=== PATIENT | female | born 1950 | race Hispanic/Latino ===

== ENCOUNTER 2019-03-02 13:33 | Observation (INO) | payer OTHER ==
[~2019-03-02] VITALS: Ht 162.6 cm; Wt 90.7 kg
--- NOTE | 2019-03-02 11:00 | NUR ---
DRESSING CHANGE WITH DR. CHIN AT BEDSIDE. NATACHA DRAIN D/C WITH PT TOLERATING WELL. INCISION TO RIGHT STUMP WITH STEPHANIE. STEPHANIE INTACT WITH NO REDNESS, SWELLING OR DRAINAGE. CLEANSED WITH NS AND 4X4 GAUZE, PAT DRIED WITH 4X4 GAUZE, APPLIED 4X4 GAUZE, SECURED WITH KERLIX AND WRAPPED WITH ASHLEY BANDAGE PER DR. CHIN. EXPLAINED WOUND CARE UTILIZING TEACH BACK METHOD. AT BEDSIDE AND SAID IN [place] PT'S WOUND CARE IS EASIER THAN PREVIOUS RIGHT FOOT ANKLE WOUND CARE. PT/ VERBALIZED UNDERSTANDING REGARDING WOUND CARE. EXPLAINED S/S OF INFECTION TO REPORT TO DOCTOR. PT/ VERBALIZED UNDERSTANDING.
[2019-03-02] MEDS ORDERED: HYDRALAZINE HCL 20 MG/ML VIAL ONE (14:20)
[2019-03-02 14:33] LABS: BASOPHILS % (AUTO) 0.5 % (0.0-5.0); EOSINOPHILS % (AUTO) 2.5 % (0.0-8.0); HEMATOCRIT 44.7 % (36-48); LYMPHOCYTES % (AUTO) 27.8 % (21.0-51.0); MEAN CORPUSCULAR HEMOGLOBIN 32.1 pg (27.0-33.0); MEAN CORPUSCULAR HGB CONC 33.7 g/dL (32.0-36.0); MEAN CORPUSCULAR VOLUME 95.2 fL (79-99); MONOCYTES % (AUTO) 5.8 % (3.0-13.0); NEUTROPHILS % (AUTO) 63.4 % (40.0-77.0); NUCLEATED RED BLOOD CELLS 0.2 % (0.0-0.19); PLATELET COUNT (AUTO) 150 K/uL (130-400); RED BLOOD CELL COUNT(AUTO) 4.69 MIL/uL (4.00-5.50); RED CELL DISTRIBUTION WIDTH 13.4 % (11.0-15.5)
[2019-03-02 14:38] LABS: APPEARANCE,URINE Clear (CLEAR); BILIRUBIN,URINE Negative (NEGATIVE); COLOR,URINE Yellow (YELLOW); GLUCOSE, URINE (UA) Negative (NEGATIVE); KETONES,URINE Negative (NEGATIVE); LEUKOCYTE ESTERASE ,URINE Negative (NEGATIVE); NITRATE,URINE Negative (NEGATIVE); OCCULT BLOOD,URINE Negative (NEGATIVE); PH,URINE 6.5 (5.0-8.0); PROTEIN,URINE Negative (NEGATIVE); UROBILINOGEN,URINE 0.2 mg/dL (0.2-1.0)
[2019-03-02 14:43] LABS: CREATININE 0.8 mg/dL (0.5-1.5); POTASSIUM 4.5 mmol/L (3.5-5.1)
[2019-03-02 14:46] LABS: AMPHET/METH SCREEN,URINE NEGATIVE (NEGATIVE); BARBITURATE SCREEN, URINE NEGATIVE (NEGATIVE); BENZODIAZEPINES SCREEN,URINE NEGATIVE (NEGATIVE); CANNABINOID SCREEN,URINE NEGATIVE (NEGATIVE); COCAINE SCREEN,URINE NEGATIVE (NEGATIVE); OPIATE SCREEN,URINE NEGATIVE (NEGATIVE); PHENCYCLIDINE SCREEN,URINE NEGATIVE (NEGATIVE)
[2019-03-02] MEDS ORDERED: ENALAPRILAT DIHYDRATE 1.25MG/ML 1ML VIAL IV ONE (14:46)
[2019-03-02 14:49] LABS: PARTIAL THROMBOPLASTIN TIME 27.3 SEC (26.3-35.5); PROTHROMBIN TIME 10.5 SEC (9.6-11.6)
[2019-03-02 14:54] LABS: ALBUMIN 3.9 g/dL (3.5-5.0); BILIRUBIN,TOTAL 0.6 mg/dL (0.2-1.0); TOTAL PROTEIN, SERUM 7.3 g/dL (6.0-8.3)
[2019-03-02] MEDS ORDERED: CLOPIDOGREL BISULFATE 75 MG TAB ONE (15:40)
[2019-03-02] MEDS ORDERED: MORPHINE SULFATE 4 MG/1ML SYG IV PRN (17:00)
[2019-03-02] MEDS ORDERED: ZOLPIDEM TARTRATE 5 MG TAB PO PRN (17:00)
[2019-03-02] MEDS ORDERED: ACETAMINOPHEN 325 MG TAB PO PRN (17:00)
[2019-03-02] MEDS ORDERED: ONDANSETRON HCL 4 MG/2 ML VIAL IV PRN (17:00)
[2019-03-02] MEDS ORDERED: HYDRALAZINE HCL 20 MG/ML VIAL IV PRN (17:00)
[2019-03-02] MEDS ORDERED: LACTULOSE 20 GM/30 ML UDCUP PO PRN (17:00)
[2019-03-02] MEDS ORDERED: ACETAMINOPHEN-CODEINE 300/30MG TAB PO PRN (17:00)
[2019-03-02] MEDS ORDERED: DiphenhydrAMINE HCL 50 MG/ML VIAL IV PRN (17:00)
[2019-03-02] MEDS ORDERED: GUAIFENESIN-DM 200/20 MG 10 ML PO PRN (17:00)
[2019-03-02 18:14] VITALS: BP 157/77
[2019-03-02 19:56] VITALS: BP 151/60
[2019-03-02] MEDS ORDERED: ATORVASTATIN CALCIUM 20 MG TABLET PO SCH (21:00)
[2019-03-02] MEDS ORDERED: METO50TA18 PO (21:22)
[2019-03-02 23:44] VITALS: BP 136/74
[2019-03-03 03:28] VITALS: BP 128/67
[2019-03-03 04:16] LABS: BASOPHILS % (AUTO) 0.4 % (0.0-5.0); EOSINOPHILS % (AUTO) 3.3 % (0.0-8.0); HEMATOCRIT 41.3 % (36-48); MEAN CORPUSCULAR HEMOGLOBIN 33.7 pg (27.0-33.0); MEAN CORPUSCULAR HGB CONC 35.8 g/dL (32.0-36.0); MEAN CORPUSCULAR VOLUME 94.1 fL (79-99); MONOCYTES % (AUTO) 6.8 % (3.0-13.0); NEUTROPHILS % (AUTO) 61.5 % (40.0-77.0); PLATELET COUNT (AUTO) 135 K/uL (130-400); RED BLOOD CELL COUNT(AUTO) 4.39 MIL/uL (4.00-5.50); RED CELL DISTRIBUTION WIDTH 13.1 % (11.0-15.5); WHITE BLOOD COUNT (AUTO) 6.2 K/uL (4.8-10.8)
[2019-03-03 04:22] LABS: HEMOGLOBIN A1C 5.4 % (4.0-6.0)
[2019-03-03 04:35] LABS: CREATININE 0.9 mg/dL (0.5-1.5); POTASSIUM 4.2 mmol/L (3.5-5.1)
[2019-03-03 08:00] VITALS: BP 138/87
[2019-03-03] MEDS ORDERED: ENOXAPARIN SODIUM 40 MG/0.4 ML SYRINGE SQ SCH (09:00)
[2019-03-03] MEDS ORDERED: ASPIRIN 81MG TAB.CHEW PO SCH (09:00)
--- NOTE | 2019-03-03 10:45 | NUR ---
CALLED DR. XAVIER ALVARADO'S OFFICE REGARDING DR. JIMENEZ'S ORDERS. DIANNE DELAROSA SAID IT WAS OK TO START ASPIRIN AND STEROIDS LONG PT ON PROTONIX AND KEEPS FOLLOW UP APPOINTMENT ALREADY SCHEDULED WITH DR. XAVIER ALVARADO. NOTIFIED PT AND FAMILY. INSTRUCTED PT/FAMILY ON S/S TO REPORT TO NURSE/DR IF NEEDED UTILIZING TEACH BACK METHOD. PT/ VERBALIZED UNDERSTANDING.
--- NOTE | 2019-03-03 10:56 | NUR ---
Provided handouts printed Hope Palsy strengthening exercises to follow at home.Patient was able to perform each facial exercises without any difficulty. Addendum: 03/03/19 at 1059 by DORCAS LOGAN, PT PT Amended: Links added.
--- NOTE | 2019-03-03 11:01 | NUR ---
NOTIFIED [facility]RE[facility] REGARDING DR. JIMENEZ'S ORDERS REGARDING STARTING ASPIRIN, STEROIDS AND PROTONIX AND ORDERS NEEDED. INFORMED OK WITH DR. XAVIER ALVARADO.
[2019-03-03 11:52] VITALS: BP 138/65
--- NOTE | 2019-03-03 13:06 | NUR ---
DYSPHAGIA EVAL COMPLETED. -S/S OF ASPIRATION. RECOMMEND REGULAR TEXTURE, THIN LIQUIDS; PILLS WHOLE WITH LIQUIDS. PATIENT INFORMATION: Pt IS A 68 YEAR OLD FEMALE WHO WAS REFERRED FOR A BEDSIDE DYSPHAGIA EVALUATION SECONDARY TO ADMITTING DIAGNOSIS FOR POSSIBLE ACUTE ISCHEMIC CVA. NEUROLOGIST CONFIRMS WELLS'S PALSY. Pt AAOX3 AND COOPERATIVE DURING THE EVALUATION. Pt HAS A PAST MEDICAL HISTORY SIGNIFICANT FOR HYPERTENSION, DYSLIPIDEMIA, OBESITY, AND SUSPECTED CHRISTIE. Pt REPORTS WELLS'S PALSY IN PAST WITH LEFT FACIAL DROOP. Pt CURRENTLY WITH WELLS'S PALSY WITH RIGHT FACIAL DROOP. EVALUATION: SWALLOW FUNCTION AND EFFICIENCY WITHIN FUNCTIONAL LIMITS. LARYNGEAL ELEVATION/EXCURSION STRONG WITH TIMELY PHARYNGEAL RESPONSE. Pt WITH NO OVERT S/S OF ASPIRATION WITH TRIALS. Pt PRESENTS WITH RIGHT SIDED FACIAL WEAKNESS. LINGUAL MUSCULATURE WITHIN FUNCTIONAL LIMITS. Pt ABLE TO COMPENSATE FOR DECREASED LABIAL SEAL. NO ANTERIOR SPILLAGE NOTED AT THIS TIME. MILK BOTTLING MACHINE OPERATOR PROVIDED Pt WITH FACIAL EXERCISES TO INCREASED ORAL MOTOR ROM AND COORDINATION. RECOMMENDATIONS: 1. REGULAR SOLIDS, THIN LIQUIDS; PILLS WHOLE WITH LIQUIDS. 2. COMPENSATORY STRATEGIES: *SEATED AT 90 DEGREES *REMAIN UPRIGHT 30 MINUTES AFTER THE MEAL G-CODES SWALLOWING: [id number] Addendum: 03/03/19 at 1312 by PRAKASH MCKEON [facility] Amended: Links added.
[2019-03-03] MEDS ORDERED: METH4TAB3 PO (13:45)
[2019-03-03] MEDS ORDERED: FAMC250T4 PO (13:45)
[2019-03-03] MEDS ORDERED: PANT40TA25 PO (13:45)
[2019-03-03] MEDS ORDERED: ASPI-1005 PO (13:45)
[2019-03-03 16:00] VITALS: BP 134/70
--- NOTE | 2019-03-03 16:34 | NUR ---
CM INITIAL CM met with pt and spoue at b/side; evident of facial drooping, cleared for dc by neurosurgoen; indp, no dme, no hh no provider, dcp plan home Addendum: 03/03/19 at 1636 by JOSTIN NULL RN CM Amended: Links added.
== END 2019-03-03 17:50 | disposition home or self-care (01) ==
LOC: EDH 13:33 → EDHIP 17:00 → 3AH 18:03
PROVIDERS: ADMIT Internal Medicine Pulmonary Disease; ATTEND Internal Medicine Pulmonary Disease
DX: G51.0 Bell's palsy (principal); E66.9 Obesity, unspecified; E78.5 Hyperlipidemia, unspecified; I10 Essential (primary) hypertension; R20.0 Anesthesia of skin; I63.9 Cerebral infarction, unspecified; K29.70 Gastritis, unspecified, without bleeding; Z79.82 Long term (current) use of aspirin; Z79.899 Other long term (current) drug therapy
CPT/HCPCS: 36415 ×2; 70450; 70544; 70551; 71045; 80048; 80053; 80061; 80305; 81003; 82550; 82948; 83036; 83874; 84484; 85025 ×2; 85610; 85730; 92610; 93005; 93880; 96372; 97116; 97161; 97530; 99284; G0378 ×25; G8978; G8979; G8980; G8981; G8982; G8983; J0360; J1650; J3490

== ENCOUNTER 2025-02-26 12:16 | Observation (INO) | payer OTHER ==
[~2025-02-26] VITALS: Ht 160 cm; Wt 77.8 kg
[~2025-02-26 12:16] MED LIST: ASPI-1005 PO; FAMC250T PO; METH4TAB3 PO; METO50TA18 PO; PANT40TA55 PO
[2025-02-26 13:19] LABS: BASOPHILS # (AUTO) 0.01 K/uL (0.00-0.20); BASOPHILS % (AUTO) 0.2 % (0.0-5.0); EOSINOPHILS # (AUTO) 0.11 K/uL (0.00-0.70); EOSINOPHILS % (AUTO) 2.3 % (0.0-8.0); IMMATURE GRANULOCYTE ABSOLUTE 0.02 K/uL (0-1); LYMPHOCYTES # (AUTO) 1.3 K/uL (1.0-4.8); LYMPHOCYTES % (AUTO) 27.2 % (21.0-51.0); MEAN CORPUSCULAR HEMOGLOBIN 32.9 pg (27.0-33.0); MEAN CORPUSCULAR VOLUME 96.6 fL (79-99); MONOCYTES # (AUTO) 0.3 K/uL (0.1-1.0); MONOCYTES % (AUTO) 7.2 % (3.0-13.0); NEUTROPHILS # (AUTO) 2.9 K/uL (1.8-7.7); NEUTROPHILS % (AUTO) 62.7 % (40.0-77.0); PLATELET COUNT (AUTO) 144 K/uL (130-400); RED BLOOD CELL COUNT(AUTO) 4.14 MIL/uL (4.00-5.50); RED CELL DISTRIBUTION WIDTH 12.8 % (11.0-15.5); WHITE BLOOD COUNT (AUTO) 4.7 K/uL (4.8-10.8)
[2025-02-26 13:27] LABS: CREATININE 0.8 mg/dL (0.5-1.0); POTASSIUM 3.9 mmol/L (3.5-5.1)
[2025-02-26 13:31] LABS: ALBUMIN 3.8 g/dL (3.5-5.0); BILIRUBIN,DIRECT 0.2 mg/dL (0.0-0.3); BILIRUBIN,TOTAL 0.9 mg/dL (0.2-1.0)
--- NOTE | 2025-02-26 13:47 | HMCIMG ---
CT HEAD/BRAIN W/O CONTRAST INDICATION: vision changes TECHNIQUE: CT HEAD/BRAIN W/O CONTRAST. CT was performed with one or more of the following dose reduction techniques: Automated exposure control, adjustment of the mA and/or kV according to the patient's size, or use of the iterative reconstruction technique. Comparison: None FINDINGS: Cerebral atrophy seen. Nonspecific periventricular and subcortical white matters changes are noted likely representing small vessel ischemic changes. No midline shift or herniation. No extra axial collection. No acute intracranial bleed. The visualized paranasal sinuses and mastoid air cells are normally aerated. IMPRESSION: Diffuse atrophy. No acute intracranial bleed is seen. Nonspecific white matter changes
--- NOTE | 2025-02-26 14:29 | ERN ---
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 Patient reports diplopia, headache, dizziness, and hypertension but denies chest pain, shortness of breath or any other associated symptoms at this time. Patient mentioned she has a history of eye problems where she was receiving injections by her showroom consultant to her left eye previous years. Medications: Losartan and metoprolol Allergies: Coded Allergies: aspirin (Verified Adverse Reaction, Unknown, GI UPSET, 03/02/19) Home Meds Active Scripts Aspirin (ASPIRIN 81MG CHEW TAB) 81 Mg Tab.chew, 81 MG PO DAILY for 30 Days, #30 TAB.CHEW Prov:FERDINAND TIRADO NP 03/03/19 Pantoprazole Sodium (Protonix) 40 Mg Ectab, 40 MG PO DAILY for 30 Days, #30 TAB.EC Prov:FERDINAND TIRADO NP 03/03/19 Famciclovir (Famciclovir) 250 Mg Tablet, 250 MG PO TID for 5 Days, #15 TAB Prov:FERDINAND TIRADO NP 03/03/19 Methylprednisolone (Medrol) 4 Mg Tab.ds.pk, 4 MG PO AD for 6 Days, #1 PACK Prov:FERDINAND TIRADO NP 03/03/19 Reported Medications Metoprolol Tartrate (Metoprolol Tartrate) 50 Mg Tablet, 50 MG PO BID, TAB 03/02/19 Past Medical History Past Medical History: Hypertension Surgical History: None Review of System Dictation Constitutional: Negative for fever,chills, and weight loss Eyes: Positive for vision change, diplopia Negative for injury, pain,redness, and discharge ENT: Negative for injury,pain or swelling Cardiovascular: Negative for chest pain, palpitations, and edema Respiratory: Negative for shortness of breath, cough, and wheezing, Abdomen/GI: Negative for abdominal pain, nausea, vomiting, diarrhea, and constipation Back: Negative for injury and pain : Negative for injury, bleeding and discharge MS/Extremity: Negative for injury and deformity Skin: Negative for rash, and discoloration Neuro: Positive for headache and dizziness negative for weakness, numbness, tingling, and seizure Psych: Negative for suicide ideation, homicidal ideation, and hallucinations Initial Vital Sign VS Vital Signs Date Time Temp Pulse Resp B/P (MAP) Pulse Ox O2 Delivery O2 Flow Rate FiO2 02/26/25 12:19 96.6 58 18 167/72 98 Room Air 0 02/26/25 12:51 21 Physical Exam Dictation General: awake, alert, NAD Head/Face: Normocephalic, atraumatic Eyes: PERRL, EOMI, vision at baseline ENT: oral cavity clear, TMs clear, no signs of infection Neck: Trachea midline, supple, no nuchal rigidity Cardiovascular: RRR, normal S1/S2, No MRGs, no JVD Respiratory: CTAB, no respiratory distress, No rales or wheezes Abdomen: Soft, non-tender, non-distended, normal bowel sounds, no guarding or rebound. Skin: Warm, dry, normal turgor, no rash MS/Extremity: Pulses equal, no cyanosis, neurovascular intact, FROM Neuro: COAx4, GCS 15, strength 5/5, CN 2-12 intact, normal cerebellar exam, normal gait, Psych: Normal behavior, mood, and affect normal Results (Laboratory/Radiology) Laboratory/Radiology Laboratory Tests Test 02/26/25 13:10 02/26/25 15:54 White Blood Count 4.7 K/uL (4.8-10.8) L Red Blood Count 4.14 MIL/uL (4.00-5.50) Hemoglobin 13.6 g/dL (12.0-16.0) Hematocrit 40.0 % (36-48) Mean Corpuscular Volume 96.6 fL (79-99) Mean Corpuscular Hemoglobin 32.9 pg (27.0-33.0) Mean Corpuscular Hemoglobin Concent 34.0 g/dL (32.0-36.0) Red Cell Distribution Width 12.8 % (11.0-15.5) Platelet Count 144 K/uL (130-400) Mean Platelet Volume 11.4 fL (7.5-10.5) H Immature Granulocyte % (Auto) 0.4 % (0-1) Neutrophils (%) (Auto) 62.7 % (40.0-77.0) Lymphocytes (%) (Auto) 27.2 % (21.0-51.0) Monocytes (%) (Auto) 7.2 % (3.0-13.0) Eosinophils (%) (Auto) 2.3 % (0.0-8.0) Basophils (%) (Auto) 0.2 % (0.0-5.0) Neutrophils # (Auto) 2.9 K/uL (1.8-7.7) Lymphocytes # (Auto) 1.3 K/uL (1.0-4.8) Monocytes # (Auto) 0.3 K/uL (0.1-1.0) Eosinophils # (Auto) 0.11 K/uL (0.00-0.70) Basophils # (Auto) 0.01 K/uL (0.00-0.20) Absolute Immature Granulocyte (auto 0.02 K/uL (0-1) Nucleated Red Blood Cells 0.0 % (0.0-0.19) Sodium Level 142 mmol/L (136-145) Potassium Level 3.9 mmol/L (3.5-5.1) Chloride Level 105 mmol/L (101-111) Carbon Dioxide Level 31 mmol/L (21-32) Blood Urea Nitrogen 13 mg/dL (7-18) Creatinine 0.8 mg/dL (0.5-1.0) Glomerular Filtration Rate Calc 78 mL/min (>90) Random Glucose 98 mg/dL (70-105) Total Calcium 9.1 mg/dL (8.5-10.1) Total Bilirubin 0.9 mg/dL (0.2-1.0) Direct Bilirubin 0.2 mg/dL (0.0-0.3) Aspartate Amino Transf (AST/SGOT) 18 U/L (10-37) Alanine Aminotransferase (ALT/SGPT) 21 U/L (12-78) Alkaline Phosphatase 86 U/L (50-136) Troponin I High Sensitivity 7 ng/L (4-50) Total Protein 7.0 g/dL (6.0-8.3) Albumin 3.8 g/dL (3.5-5.0) Urine Color LIGHT-YELLOW (YELLOW) Urine Appearance CLEAR (CLEAR) Urine pH 8.0 (5.0-8.0) Urine Specific [place] 1.014 (1.001-1.031) Urine Protein NEGATIVE mg/dL (NEGATIVE) Urine Glucose (UA) NEGATIVE mg/dL (NEGATIVE) Urine Ketones NEGATIVE mg/dL (NEGATIVE) Urine Occult Blood NEGATIVE (NEGATIVE) Urine Nitrate NEGATIVE (NEGATIVE) Urine Bilirubin NEGATIVE mg/dL (NEGATIVE) Urine Urobilinogen 0.2 mg/dL (0.2-1.0) Urine Leukocyte Esterase 25 Shanda/uL (NEGATIVE) H Urine RBC 0-1 /HPF (0-1) Urine WBC 2-5 /HPF (0-1) H Urine Non-Squamous Epithelial Cells <1 /HPF (0-2) Urine Bacteria None /HPF (None Seen) Labs Reviewed?: Yes EKG Comment: EKG 02/26/2025 time 1:43 p.m. ventricular rate 60, SC 164, QRS D 86, QT 363. Sinus rhythm. No STEMI CT Scan Comment: REASON: vision changes ORDERING PHYSICIAN: ALAYNA NORMAN MD PROCEDURE: HEAD WO - CT HEAD/BRAIN W/O CONTRAST CT HEAD/BRAIN W/O CONTRAST INDICATION: vision changes TECHNIQUE: CT HEAD/BRAIN W/O CONTRAST. CT was performed with one or more of the following dose reduction techniques: Automated exposure control, adjustment of the mA and/or kV according to the patient's size, or use of the iterative reconstruction technique. Comparison: None FINDINGS: Cerebral atrophy seen. Nonspecific periventricular and subcortical white matters changes are noted likely representing small vessel ischemic changes. No midline shift or herniation. No extra axial collection. No acute intracranial bleed. The visualized paranasal sinuses and mastoid air cells are normally aerated. IMPRESSION: Diffuse atrophy. No acute intracranial bleed is seen. Nonspecific white matter changes DICTATED BY: JAYME BONE MD DATE: 02/26/25 1344 ED Course ED Course Orders Procedure Category Date Status Time 12 Lead Ekg Tracing- EKG 02/26/25 Complete Technical 13:12 Basic Metabolic Panel LAB 02/26/25 Complete 13:12 Cbc With Differential LAB 02/26/25 Complete 13:12 Troponin I High LAB 02/26/25 Complete Sensitivity 13:12 Hepatic Function Panel LAB 02/26/25 Complete 13:12 Ct Head/Brain W/O CT 02/26/25 Resulted Contrast 13:12 Urinalysis Profile LAB 02/26/25 Complete 13:12 Vital Signs Date Time Temp Pulse Resp B/P (MAP) Pulse Ox O2 Delivery O2 Flow Rate FiO2 02/26/25 12:51 98.2 62 14 178/73 98 Room Air* 0 21 02/26/25 12:19 96.6 58 18 167/72 98 Room Air 0 Medical Decision Making MDM MDM: Differential diagnosis: Headache, vision change, hypertensive urgency 1623- [facility] consult, accepts patient for admission Rationale: Tests considered and ordered secondary to shared decision making include: labs, ECG and radiology Risk of complication and/or morbidity or mortality of patient management: None Medications-Per medication reconciliation Need for hospitalization: Patient does meet criteria for hospitalization. Need for emergency major/minor surgery: No There are no social concerns with this patient. I independently interpreted the test that were performed, results were reviewed by me and considered findings on radiology if ordered. Medical management and examination interpretation discussions were had by me with other qualified healthcare professionals as indicated for the patient's care. DX & DISP Disposition: Inpatient Decision to Admit Date: Feb 26, 2025 Decision to Admit Time: 16:23 Departure Impression: Primary Impression: Vision changes Additional Impression: Hypertensive urgency Condition: Stable Referrals: APRIL GUILLEN MD (PCP) ALAYNA NORMAN MD Feb 26, 2025 14:29
--- NOTE | 2025-02-26 14:51 | EKG ---
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
[2025-02-26 16:03] LABS: APPEARANCE,URINE CLEAR (CLEAR); BILIRUBIN,URINE NEGATIVE (NEGATIVE); COLOR,URINE LIGHT-YELLOW (YELLOW); GLUCOSE, URINE (UA) NEGATIVE (NEGATIVE); KETONES,URINE NEGATIVE (NEGATIVE); LEUKOCYTE ESTERASE ,URINE 25 Leu/uL (NEGATIVE); NITRATE,URINE NEGATIVE (NEGATIVE); OCCULT BLOOD,URINE NEGATIVE (NEGATIVE); PROTEIN,URINE NEGATIVE (NEGATIVE); UROBILINOGEN,URINE 0.2 mg/dL (0.2-1.0)
[2025-02-26 16:04] LABS: ADD UA MICROSCOPIC YES
[2025-02-26 16:06] LABS: MUCUS,URINE RARE LPF (None Seen); NON-SQUAMOUS EPITHELIAL CELL <1 /HPF (0-2); RBC,URINE 0-1 /HPF (0-1)
[2025-02-26] MEDS ORDERED: ondanSETRON 4MG INJ IVP PRN (16:30)
[2025-02-26] MEDS ORDERED: PoTASSium chl 10% ELIXIR 20MEQ 20 MEQ/15 ML UDCUP PO PRN (16:30)
[2025-02-26] MEDS ORDERED: PoTASSium chloRIDE 20MEQ/100ML 100 ML IV PRN (16:30)
[2025-02-26] MEDS ORDERED: HYDROcodone/APAP 5/325 1 TAB TABLET PO PRN (16:30)
[2025-02-26] MEDS ORDERED: MAGNESIUM 2GM PREMIX 50ML 50 ML IV PRN (16:30)
[2025-02-26] MEDS ORDERED: PoTASSium chloRIDE 20MEQ ER 20 MEQ ERTAB PO PRN (16:30)
[2025-02-26] MEDS ORDERED: LACTULOSE 20 GM/30 ML UDCUP PO PRN (16:30)
[2025-02-26] MEDS: hydrALAZine 20MG/ML VIAL IV PRN (18:02)
[2025-02-26] MEDS ORDERED: IOHEXOL 350 MG/ML 100ML INFUS..BTL IV ONE (18:14)
[2025-02-26 18:18] LABS: AMPHET/METH SCREEN,URINE NEGATIVE (NEGATIVE); BARBITURATE SCREEN, URINE NEGATIVE (NEGATIVE); BENZODIAZEPINES SCREEN,URINE NEGATIVE (NEGATIVE); CANNABINOID SCREEN,URINE NEGATIVE (NEGATIVE); COCAINE SCREEN,URINE NEGATIVE (NEGATIVE); OPIATE SCREEN,URINE NEGATIVE (NEGATIVE); PHENCYCLIDINE SCREEN,URINE NEGATIVE (NEGATIVE)
--- NOTE | 2025-02-26 18:21 | HP ---
[facility] HISTORY & PHYSICAL Date Patient Seen: Feb 26, 2025 Time of Visit: 18:14 Supervising Physician: DR. DAVIS BARAJAS Primary Care Physician: [ ] Outpatient Specialists: [ ] Inpatient Consults: [ ] PROBLEM LIST: 1. HYPERTENSIVE URGENCY 2. VISION CHANGE LEFT EYE, RULE OUT ISCHEMIC STROKE 3. ACUTE COMPLICATED CYSTITIS 4. UTI CHIEF COMPLAINT: Vision change, left eye HPI: Patient is a 74-year-old female with past medical history significant for hypertension, hyperlipidemia, presented to the emergency department today complaining of vision change to the left eye that started today. Patient reports that she has been having blurry vision to the left eye and when checking her blood pressure at home, she was found to have a systolic BP above 180s. In addition, patient reports dizziness at times. Patient decided to come to the emergency department for further evaluation and treatment. Patient denies fever, chills, nausea, vomiting, diarrhea, chest pain, cough, dysuria, or any other symptoms. The workup in the emergency department shows WBC of 4.7, blood pressure 178/72, UA shows UTI. Patient will be admitted to medical floor for further evaluation and treatment. PAST MEDICAL HX: see above PAST SURGICAL HX: noncontributory SOCIAL HISTORY: No tobacco, ETOH, or illicit drug use Coded Allergies: aspirin (Verified Adverse Reaction, Unknown, GI UPSET, 03/02/19) REVIEW OF SYSTEMS: 12 point ROS reviewed with patient. Pertinent positives mentioned above. Otherwise negative. PHYSICAL EXAM: GENERAL: alert, weak, awake oriented x 3 HEENT: EOMI, Sclera non icteric, moist mucosa NECK: Supple, no JVD, trachea midline LUNGS: Clear breath sounds bilaterally. No wheezes HEART: Regular rate and rhythm. Normal S1 and S2, without murmurs ABD: Abdomen soft, nontender. Bowel sounds present EXT: No clubbing cyanosis or edema NEURO: Alert and oriented to person, follows commands, blurry vision to the left eye Vital Signs (last 8hr) Date Time Temp Pulse Resp B/P (MAP) Pulse Ox O2 Delivery O2 Flow Rate FiO2 02/26/25 17:58 97.9 72 14 189/69 99 Room Air* 0 21 02/26/25 12:51 98.2 62 14 178/73 98 Room Air* 0 21 02/26/25 12:19 96.6 58 18 167/72 98 Room Air 0 LABS: Hematology Labs: Test 02/26/25 13:10 Range/Units White Blood Count 4.7 L 4.8-10.8 K/uL Red Blood Count 4.14 4.00-5.50 MIL/uL Hemoglobin 13.6 12.0-16.0 g/dL Hematocrit 40.0 36-48 % Mean Corpuscular Volume 96.6 79-99 fL Mean Corpuscular Hemoglobin 32.9 27.0-33.0 pg Mean Corpuscular Hemoglobin Concent 34.0 32.0-36.0 g/dL Red Cell Distribution Width 12.8 11.0-15.5 % Platelet Count 144 130-400 K/uL Mean Platelet Volume 11.4 H 7.5-10.5 fL Immature Granulocyte % (Auto) 0.4 0-1 % Neutrophils (%) (Auto) 62.7 40.0-77.0 % Lymphocytes (%) (Auto) 27.2 21.0-51.0 % Monocytes (%) (Auto) 7.2 3.0-13.0 % Eosinophils (%) (Auto) 2.3 0.0-8.0 % Basophils (%) (Auto) 0.2 0.0-5.0 % Neutrophils # (Auto) 2.9 1.8-7.7 K/uL Lymphocytes # (Auto) 1.3 1.0-4.8 K/uL Monocytes # (Auto) 0.3 0.1-1.0 K/uL Eosinophils # (Auto) 0.11 0.00-0.70 K/uL Basophils # (Auto) 0.01 0.00-0.20 K/uL Absolute Immature Granulocyte (auto 0.02 0-1 K/uL Nucleated Red Blood Cells 0.0 0.0-0.19 % Chemistry Labs: Test 02/26/25 13:10 Range/Units Sodium Level 142 136-145 mmol/L Potassium Level 3.9 3.5-5.1 mmol/L Chloride Level 105 101-111 mmol/L Carbon Dioxide Level 31 21-32 mmol/L Blood Urea Nitrogen 13 7-18 mg/dL Creatinine 0.8 0.5-1.0 mg/dL Glomerular Filtration Rate Calc 78 >90 mL/min Random Glucose 98 70-105 mg/dL Total Calcium 9.1 8.5-10.1 mg/dL Total Bilirubin 0.9 0.2-1.0 mg/dL Direct Bilirubin 0.2 0.0-0.3 mg/dL Aspartate Amino Transf (AST/SGOT) 18 10-37 U/L Alanine Aminotransferase (ALT/SGPT) 21 12-78 U/L Alkaline Phosphatase 86 50-136 U/L Troponin I High Sensitivity 7 4-50 ng/L Total Protein 7.0 6.0-8.3 g/dL Albumin 3.8 3.5-5.0 g/dL DIAGNOSTICS / RADIOLOGY RESULTS: [ ] PLAN NEURO: Minimize central acting medications as possible. Maintain fall precautions, adequate lighting during the day Neuro check every 4 hours Obtain UDS, ammonia level MRI brain with and without contrast, CTA neck Aspirin 81 mg p.o. daily, atorvastatin 40 mg p.o. at bedtime PULMONARY: Supplemental 02 as needed. Maintain aspiration precautions at all times CARDIOVASCULAR: Follow hemodynamics. Vital signs per facility protocol GI & NUTRITION: Continue with nutritional support. Continue stool softeners and laxatives as needed. KIDNEYS & ELECTROLYTES: Strict monitoring of intake, output and overall fluid balance. Avoid nephrotoxic medications to the extent possible. Medications to be dosed according to renal function. Monitor electrolytes and replace as needed ENDOCRINE: Maintain blood glucose between 100-180 at all times. Hypoglycemia protocol in place INFECTIOUS DISEASE: Trend temperature, WBC and procalcitonin level Follow cultures, deescalate antibiotics as soon as possible. Panculture if new onset fever Ceftriaxone 2 g IV daily Urine culture ONCOLOGY/HEMATOLOGY/COAGULATION: Monitor for s/s of bleeding Monitor hemoglobin, coagulation studies as needed SKIN: Pressure ulcer prevention per facility protocol Specialty mattress ORTHO/REHAB: Continue PT/OT Prophylaxis: Continue GI and DVT prophylaxis Code Status: Full Resuscitation Disposition: TBD Other: Total patient care time exceeds 35 minutes excluding all procedures. ZARINA SONG Feb 26, 2025 18:21
--- NOTE | 2025-02-26 18:48 | NUR ---
PATIENT GOT BACK FROM CT ANGIO NECK WITH CONTRAST AND STARTED FEELING DIZZY AND WANTING TO FAINT, I HELPED PATIENT TO COMMODE AND SHE VOIDED 100CC, Addendum: 02/26/25 at 1930 by AMMY PATIENT WAS HYPERTENSIVE, 208/[address] ANGIO NECK W/ CONTRAST, I ADMINISTERED HYDRALAZINE PRN, AND RECEIVED ORDERS FROM ZARINA SONG NP FOR BENADRYL 25MG IV ONCE, 1839 PATIENT STARTED COMPLAINING OF CONGESTION AND I WAS ABLE TO ADMINISTER BENADRYL 25MG IV ONCE, 1847 PATIENT NASAL CONGESTION STARTED DECLINING, CURRENT BP IS 156/75, 98% O2 SAT, 80 HR, 12 RR, 98.0 TEMP PATIENT RESTNG IN BED, CALL LIGHT IN REACH
[2025-02-26] MEDS: CEFTRIAXONE 2GM VIAL IVPB SCH (19:02)
--- NOTE | 2025-02-26 19:11 | HMCIMG ---
CT ANGIO NECK HISTORY: Vision changes COMPARISON: None TECHNIQUE: CT angiography of the neck was performed. The study was performed using angiographic technique with maximum intensity projection reconstruction images. FINDINGS: There are degenerative changes of the cervical spine. Parapharyngeal fat planes are preserved bilaterally. The airway is patent. Normal enhancement of the thyroid gland is noted. Visualized portion of the lung apices are unremarkable. The common, internal and external carotid arteries are visualized. Approximately 40% stenosis is seen of the internal carotid arteries bilaterally. Both vertebral arteries are seen with antegrade flow. IMPRESSION: CTA Neck 1. Atherosclerotic disease. Approximately 40% stenosis is seen of the internal carotid arteries bilaterally. CT was performed with one or more following dose reduction techniques: automated exposure control, adjustment of the mA and kv according to patient's size, or use of a iterative reconstruction technique.
[2025-02-26] MEDS: DiphenhydrAMINE HCL 50 MG/ML VIAL IV ONE (19:21)
--- NOTE | 2025-02-26 19:23 | NUR ---
PT CARE ASSUMED AT THIS TIME
[2025-02-26] MEDS ORDERED: hydrALAZine 20MG/ML VIAL IV PRN (19:30)
[2025-02-26] MEDS: atorVAStatin 40 MG TABLET PO SCH (21:22)
[2025-02-26] MEDS: hydrALAZine 25MG TABLET PO SCH (21:23)
--- NOTE | 2025-02-26 22:56 | NUR ---
[facility] NUMBER [phone]
[2025-02-27] MEDS: acetaMINOPHEN 325 MG TAB PO PRN (01:03)
--- NOTE | 2025-02-27 03:55 | NUR ---
ATTEMPT TO GIVE REPORT AT THIS TIME
--- NOTE | 2025-02-27 04:24 | NUR ---
REPORT GIVEN TO IDALIA ANDERSON AT THIS TIME
[2025-02-27 04:28] VITALS: O2SAT 98
[2025-02-27 04:46] VITALS: BP 144/85; PULSE 71; RESP 20; TEMP 98
[2025-02-27 06:08] LABS: BASOPHILS # (AUTO) 0.01 K/uL (0.00-0.20); BASOPHILS % (AUTO) 0.2 % (0.0-5.0); EOSINOPHILS # (AUTO) 0.12 K/uL (0.00-0.70); HEMATOCRIT 39.5 % (36-48); IMMATURE GRANULOCYTE ABSOLUTE 0.02 K/uL (0-1); LYMPHOCYTES # (AUTO) 1.6 K/uL (1.0-4.8); LYMPHOCYTES % (AUTO) 26.7 % (21.0-51.0); MEAN CORPUSCULAR HEMOGLOBIN 32.9 pg (27.0-33.0); MEAN CORPUSCULAR HGB CONC 34.2 g/dL (32.0-36.0); MEAN CORPUSCULAR VOLUME 96.3 fL (79-99); MONOCYTES # (AUTO) 0.5 K/uL (0.1-1.0); MONOCYTES % (AUTO) 8.1 % (3.0-13.0); NEUTROPHILS # (AUTO) 3.7 K/uL (1.8-7.7); NEUTROPHILS % (AUTO) 62.7 % (40.0-77.0); PLATELET COUNT (AUTO) 136 K/uL (130-400); WHITE BLOOD COUNT (AUTO) 5.9 K/uL (4.8-10.8)
[2025-02-27 06:17] LABS: CREATININE 0.8 mg/dL (0.5-1.0); POTASSIUM 3.5 mmol/L (3.5-5.1)
[2025-02-27 08:18] VITALS: BP 149/69; PULSE 69; RESP 16; TEMP 97.7
[2025-02-27] MEDS: ASPIRIN 81 MG EC TAB PO SCH (10:28)
[2025-02-27] MEDS: ENOXAPARIN SODIUM 40 MG/0.4 ML SYRINGE SQ SCH (10:28)
[2025-02-27] MEDS: FAMOTIDINE 20MG TAB PO SCH (10:29)
[2025-02-27 12:01] VITALS: BP 145/64; PULSE 68; RESP 16; TEMP 97.9
--- NOTE | 2025-02-27 12:17 | HMCIMG ---
MR BRAIN WO CON HISTORY: Visual changes COMPARISON: None TECHNIQUE: MRI of the brain was performed utilizing multiple pulse sequences in axial, coronal and sagittal planes. Patient was not given contrast through intravenous route. Patient declined intravenous contrast. FINDINGS: The ventricles and extraventricular CSF spaces are nondilated for patient's age. There is no midline shift, mass effect or herniation. No subacute hemorrhage is seen. No MR evidence of acute infarct is seen in the diffusion weighted images. Cerebellar tonsils are in normal position. No evidence of mucoperiosteal thickening is seen of the visualized paranasal sinuses. No MR evidence of a mass lesion is seen in this noncontrast study. IMPRESSION: 1. No MR evidence of acute infarct is seen in the diffusion weighted images.
--- NOTE | 2025-02-27 13:02 | DS ---
[facility] DISCHARGE SUMMARY Date Patient Seen: Feb 27, 2025 Time of Visit: 12:57 Supervising Physician: Dr. Mello Primary Care Physician: Dr. Dominguez Ventura Outpatient Specialists: [ ] Inpatient Consults: [ ] PROBLEM LIST: Hypertensive urgency, now resolved. Left eye double vision, no brain abnormality seen on CT and MRI. Hypertension. Hyperlipidemia. HOSPITAL COURSE: Patient is a 74-year-old female with past medical history significant for hypertension, hyperlipidemia, presented to the emergency department today compla ining of vision change to the left eye that started yesterday. Patient reports that she has been having blurry vision to the left eye and when checking her blood pressure at home, she was found to have a systolic BP above 180s. In addition, patient reports dizziness at times. Patient decided to come to the emergency department for further evaluation and treatment. The workup in the emergency department shows WBC of 4.7, blood pressure 178/72, UA showed mildly elevated leukocyte esterase and WBCs no bacteria was seen. Patient will be admitted to medical floor for further evaluation and treatment. On follow up today, the patient's vital sign improved systolic in the 140s. Laboratory data was unremarkable. Imaging of the head showed diffuse atrophy and no acute intracranial abnormality was seen. A later MRI was done and again showed no acute intracranial abnormality. CTA of the neck showed atherosclerotic disease with approximately 40% stenosis seen in the internal carotid arteries bilaterally. The patient reports feeling generally better except for the double vision that persists and corrects when covering her left eye. We will request a eye patch for the patient and we will also discuss with case management regarding setting up an appointment with a local wind turbine mechanic for the upcoming days. I did discuss with the patient that she would need to visit with a wind turbine mechanic. Unfortunately, those services are not provided at this institution. I am going to ask the staff nurse to set up appointment with the wind turbine mechanic of choice prior to discharge within the next 1-3 days. I advised the patient that she can also visit with her PCP and obtain a referral for local ophthalmology visit. With that said, I am going to review and reconcile medication list for the patient and we will plan for discharge home today. HPI (per admitting provider) The patient was treated for the following problems: ACTIVE PROBLEM LIST FOR THE HOSPITALIZATION: Hypertensive urgency resolved. Double vision. CHRONIC PROBLEMS: continue previous management per PCP unless otherwise indicated SPRING LAYER FINDINGS/RECOMMENDATIONS: [ ] PROCEDURES: as mentioned above DISCHARGE MEDICATIONS: Continue current medications from home. Pt hemodynamically stable and afebrile at time of discharge. PCP notified of patients admission, hospital course and discharge. PHYSICAL EXAM: GENERAL: Alert, weak, awake oriented x 3 HEENT: Left eye double vision, otherwise EOMI, Sclera non icteric, moist mucosa NECK: Supple, no JVD, trachea midline LUNGS: Clear breath sounds bilaterally. No wheezes HEART: Regular rate and rhythm. Normal S1 and S2, without murmurs ABD: Abdomen soft, nontender. Bowel sounds present EXT: No clubbing cyanosis or edema NEURO: Alert and oriented to person, follows commands. FOLLOW-UP: Follow-up with PCP in 2-3 days Schedule ophthalmology appointment with the wind turbine mechanic of choice prior to discharge within the next 1-3 days RECOMMENDATIONS: See Discharge Instructions This case was seen and discussed with my supervising physician. More than 30 minutes spent on discharge process, including evaluation of the patient, discuss ion with nursing staff, medication reconciliation and follow-up appointments NATASHA AMADOR NP Feb 27, 2025 13:02
--- NOTE | 2025-02-27 15:10 | NUR ---
DCP: HOME met with pt and her daughter Linda Oconnor [phone]. Pt lives at home with her Froy Oconnor [phone]. Pt reports that she remains independent of driving, home management, meal prep, ambulation and ADLS. PCP Corrina Mix and uses [facility] for rx. Addendum: 02/27/25 at 1534 by TORSTEN QIU SS Amended: Links added.
== END 2025-02-27 16:00 | disposition home or self-care (01) ==
LOC: EDH 12:16 → EDHIP 12:17 → 2DH 02-27 04:36
PROVIDERS: ADMIT Internal Medicine Critical Care Medicine; ATTEND Internal Medicine Critical Care Medicine
DX: I10 Essential (primary) hypertension (principal); E78.5 Hyperlipidemia, unspecified; H53.2 Diplopia; H53.8 Other visual disturbances; I16.0 Hypertensive urgency; N30.00 Acute cystitis without hematuria; Z88.6 Allergy status to analgesic agent; Z79.899 Other long term (current) drug therapy
CPT/HCPCS: 96365; 96375; 81001; 99284; 80076; 84484; 80048 ×2; 80305; 82140; 85025 ×2; 36415 ×2; 70450; 70498; 93005; 96372; 83735; 70551; G0378 ×22; J1200; J0696; J0360; Q9967; J1650